=== PATIENT | male | born 1975 | race Caucasian/White ===

== ENCOUNTER 2021-05-25 09:36 | Emergency (ER) | payer OTHER ==
[2021-05-25 10:03] VITALS: BP 120/72; PULSE 60; TEMP 98.6; BMI 22.8
[2021-05-25] MEDS ORDERED: RABIES IMMUNE GLOBULIN 300 UNITS/1 ML VIAL IM ONE (10:14)
[2021-05-25] MEDS ORDERED: RABIES VACCINE (PCEC)/PF 2.5 UNIT/VIAL IM ONE ×2 (10:14→10:17)
[2021-05-25] MEDS ORDERED: RABIES IMMUNE GLOBULIN 300 UNITS/1 ML VIAL ONE (10:17)
== END 2021-05-25 10:55 | disposition home or self-care (01) ==
LOC: FER 09:36
PROC: 3E023GC Introduction of Other Therapeutic Substance into Muscle, Percutaneous Approach (ICD-10-PCS; principal; 2021-05-25)
DX: Z29.14 Encounter for prophylactic rabies immune globulin (principal)
CPT/HCPCS: 90375; 90675; 99284-25

== ENCOUNTER 2021-05-28 08:58 | Emergency (ER) | payer OTHER ==
[2021-05-28 09:05] VITALS: BP 122/80; PULSE 50; TEMP 97.6; BMI 22.1
[2021-05-28] MEDS ORDERED: RABIES VACCINE (PCEC)/PF 2.5 UNIT/VIAL IM ONE ×2 (09:08→09:26)
== END 2021-05-28 09:37 | disposition home or self-care (01) ==
LOC: FER 08:58
PROC: 3E0234Z Introduction of Serum, Toxoid and Vaccine into Muscle, Percutaneous Approach (ICD-10-PCS; principal; 2021-05-28)
DX: Z29.14 Encounter for prophylactic rabies immune globulin (principal)
CPT/HCPCS: 90675; 99284-25

== ENCOUNTER 2021-06-03 11:57 | Emergency (ER) | payer OTHER ==
[2021-06-03 12:03] VITALS: BP 115/70; PULSE 57; TEMP 97.8; BMI 22.1
[2021-06-03] MEDS ORDERED: RABIES VACCINE (PCEC)/PF 2.5 UNIT/VIAL IM ONE ×2 (12:09→12:11)
== END 2021-06-03 12:26 | disposition home or self-care (01) ==
LOC: FER 11:57
PROC: 3E0234Z Introduction of Serum, Toxoid and Vaccine into Muscle, Percutaneous Approach (ICD-10-PCS; principal; 2021-06-03)
DX: Z20.3 Contact with and (suspected) exposure to rabies (principal)
CPT/HCPCS: 90675; 99284-25

== ENCOUNTER 2021-06-13 12:25 | Emergency (ER) | payer OTHER ==
[2021-06-13] MEDS ORDERED: RABIES VACCINE (PCEC)/PF 2.5 UNIT/VIAL IM ONE ×2 (12:32→12:48)
[2021-06-13 12:58] VITALS: BP 129/85; PULSE 56; TEMP 97.6; BMI 22.1
== END 2021-06-13 13:00 | disposition home or self-care (01) ==
LOC: FER 12:25
PROC: 3E0234Z Introduction of Serum, Toxoid and Vaccine into Muscle, Percutaneous Approach (ICD-10-PCS; principal; 2021-06-13)
DX: Z29.14 Encounter for prophylactic rabies immune globulin (principal)
CPT/HCPCS: 90675; 99283-25

== ENCOUNTER 2022-07-30 09:06 | Emergency (ER) | payer BC, OTHER ==
[2022-07-30 09:26] VITALS: BP 130/80; PULSE 54; RESP 16; TEMP 98.7; BMI 22.1
[2022-07-30] MEDS ORDERED: ACETAMINOPHEN 1000 MG/100 ML BAG IVPB ONE (09:29)
[2022-07-30] MEDS ORDERED: ACETAMINOPHEN INJECTION 100 ML IVPB ONE (09:51)
[2022-07-30 10:30] LABS: HEMATOCRIT 42.9 % (35.4-49); HEMOGLOBIN 14.4 G/dL (11.7-16.9); MCHC 33.6 g/dl (32.0-35.9); MEAN CELL VOLUME 89.4 fl (80-96); MEAN PLT VOLUME 10.2 fl (7.5-11.1); RDW 13.9 % (11.9-15.9); WHITE BLOOD COUNT 4.7 10^3/uL (4.0-10.8)
[2022-07-30 10:33] LABS: ALBUMIN 4.3 g/dl (3.4-5.0); CALCIUM 9.3 mg/dl (8.5-10); CREATININE 0.9 mg/dl (0.55-1.3); MAGNESIUM 1.8 mg/dL (1.8-2.4); TOT PROT 7.4 g/dl (6.4-8.2)
== END 2022-07-30 12:11 | disposition home or self-care (01) ==
LOC: FER 09:06
PROC: 3E0333Z Introduction of Anti-inflammatory into Peripheral Vein, Percutaneous Approach (ICD-10-PCS; principal; 2022-07-30)
DX: R10.11 Right upper quadrant pain (principal)
CPT/HCPCS: 0241U-QW; 36415; 74177-TC; 80053; 81003; 83690; 83735; 85027; 87086; 99285-25; Q9967

== ENCOUNTER 2023-02-15 17:20 | Emergency (ER) | payer OTHER, BC ==
[2023-02-15 17:35] VITALS: BP 146/88; PULSE 58; RESP 15; TEMP 98.3; BMI 22.1
== END 2023-02-15 18:04 | disposition home or self-care (01) ==
LOC: FER 17:20
DX: T23.201A Burn of second degree of right hand, unspecified site, initial encounter (principal); T23.202A Burn of second degree of left hand, unspecified site, initial encounter; T31.0 Burns involving less than 10% of body surface; V49.40XA Driver injured in collision with unspecified motor vehicles in traffic accident, initial encounter; Y93.I9 Activity, other involving external motion
CPT/HCPCS: 99283-25

== ENCOUNTER 2024-03-03 19:38 | Emergency (ER) | payer BC, OTHER ==
[2024-03-03 19:44] VITALS: BP 102/65; PULSE 62; RESP 18; TEMP 98; BMI 22.1
[2024-03-03] MEDS ORDERED: ACETAMINOPHEN 500 MG TABLET (FP) ONE (20:19)
[2024-03-03] MEDS: ACETAMINOPHEN 500 MG TABLET (FP) PO ONE (20:28)
== END 2024-03-03 21:27 | disposition home or self-care (01) ==
LOC: FER 19:38
DX: S20.211A Contusion of right front wall of thorax, initial encounter (principal); S60.511A Abrasion of right hand, initial encounter; S60.512A Abrasion of left hand, initial encounter; S80.211A Abrasion, right knee, initial encounter; S80.212A Abrasion, left knee, initial encounter; W18.39XA Other fall on same level, initial encounter; Y93.02 Activity, running
CPT/HCPCS: 71046-TC-FY; 71101-TC-RT-FY; 99283-25